=== PATIENT | male | born 1945 ===

== ENCOUNTER 2016-08-23 08:51 | Emergency (ER) | payer MEDICARE, OTHER ==
[2016-08-23 09:07] VITALS: BMI 38.2
[2016-08-23] MEDS ORDERED: Oxycodone/Acetaminophen 5/325 mg Tab PO STA (09:23)
--- NOTE | 2016-08-23 10:53 | CT ---
PROCEDURE: CT HEAD WITHOUT CONTRAST. HISTORY: head injury COMPARISON: 06/03/2012 TECHNIQUE: Axial computed tomography images were obtained through the head/brain without intravenous contrast. Radiation dose: Total exam DLP = 822.62 mGy-cm. This CT exam was performed using one or more of the following dose reduction techniques: Automated exposure control, adjustment of the mA and/or kV according to patient size, and/or use of iterative reconstruction technique. FINDINGS: HEMORRHAGE: No intracranial hemorrhage. BRAIN: No mass effect or edema. Mild diffuse cerebral atrophy consistent with age. Minimal chronic periventricular white matter ischemic change. VENTRICLES: Unremarkable. No hydrocephalus. CALVARIUM: Unremarkable. PARANASAL SINUSES: Chronic pansinusitis. Retention cysts/ polyps in the maxillary sinuses. MASTOID AIR CELLS: Unremarkable as visualized. No inflammatory changes. OTHER FINDINGS: None. IMPRESSION: No intracranial hemorrhage. Mild age-appropriate atrophy and minimal chronic white matter ischemic change. Chronic pansinusitis.
--- NOTE | 2016-08-23 10:55 | CT ---
PROCEDURE: CT Cervical Spine without contrast HISTORY: Trauma COMPARISON: None available. TECHNIQUE: Axial computed tomography images were obtained of the cervical spine without the use of intravenous contrast. Coronal and sagittal reformatted images were created and reviewed. Radiation dose: Total exam DLP = 714.76 mGy-cm. This CT exam was performed using one or more of the following dose reduction techniques: Automated exposure control, adjustment of the mA and/or kV according to patient size, and/or use of iterative reconstruction technique. FINDINGS: VERTEBRAE: No fracture. Normal alignment. No destructive bony lesion. DISCS/SPINAL CANAL/NEURAL FORAMINA: No significant central canal or neural foraminal stenosis. Discs heights are grossly preserved. PARASPINAL SOFT TISSUES: Unremarkable. OTHER FINDINGS: None. IMPRESSION: No evidence of fracture or dislocation.
--- NOTE | 2016-08-23 11:00 | ED PDOC ---
Arrival/HPI <Kartik Cantu - Last Filed: 08/23/16 10:59> - General Historian: Patient <Keena Schmidt - Last Filed: 08/23/16 12:44> - General Chief Complaint: Trauma Time Seen by Provider: 08/23/16 09:15 - History of Present Illness Narrative History of Present Illness (Text): 08/23/16 12:30 70yo male with history of hypertension in ED with complaint of back pain, neck, left knee and great toe pain s/p trauma this morning. States the stairs he was standing on collapsed and he fell down 3steps on his back. States he felt dizzy s/p, but denies LOC. Denies focal weakness, urinary/fecal incontinence, headache , nausea, vomiting, any other complaint. (Keena Schmidt) Past Medical History - Tetanus Immunization Tetanus Immunization: Unknown - Cardiac Hx Cardiac Disorders: Yes Hx Hypertension: Yes - Pulmonary Hx Respiratory Disorders: Yes Hx Asthma: Yes - Neurological Hx Neurological Disorder: No - HEENT Hx HEENT Disorder: No Hx Blind: No - Renal Hx Renal Disorder: No - Endocrine/Metabolic Hx Endocrine Disorders: No - Hematological/Oncological Hx Blood Disorders: No - Integumentary Hx Dermatological Disorder: No - Musculoskeletal/Rheumatological Hx Musculoskeletal Disorders: No - Gastrointestinal Hx Gastrointestinal Disorders: No - Genitourinary/Gynecological Hx Genitourinary Disorders: No - Psychiatric Hx Psychophysiologic Disorder: No Hx Depression: No Hx Emotional Abuse: No Hx Physical Abuse: No Hx Substance Use: No - Past Surgical History Past Surgical History: No Previous - Surgical History Hx Musculoskeletal Surgery: Yes (right knee) - Suicidal Assessment Feels Threatened In Home Enviroment: No <Kartik Cantu - Last Filed: 08/23/16 10:59> - Provider Review Nursing Documentation Reviewed: Yes <Keena Schmidt - Last Filed: 08/23/16 12:44> Family/Social History Smoking Status: Never Smoked Hx Alcohol Use: No Hx Substance Use: No Hx Substance Use Treatment: No <Kartik Cantu - Last Filed: 08/23/16 10:59> - Physician Review Nursing Documentation Reviewed: Yes Family/Social History: Unknown Family HX <Keena Schmidt A - Last Filed: 08/23/16 12:44> Allergies/Home Meds <Kartik Cantu - Last Filed: 08/23/16 10:59> <Keena Schmidt A - Last Filed: 08/23/16 12:44> Allergies/Adverse Reactions: Allergies No Known Allergies Allergy (Verified 08/23/16 09:07) Home Medications: Home Meds Medication Instructions Recorded Confirmed Albuterol/Ipratropium [Duoneb 3 3 ml IH 06/03/12 09/14/13 mg/0.5 mg (3 ml) UD] Losartan/Hydrochlorothiazide 1 tab PO DAILY 06/03/12 09/14/13 [Hyzaar 100-12.5 Tablet] Budesonide/Formoterol Fumarate 1 aer 09/14/13 09/14/13 [Symbicort 80-4.5 Mcg Inhaler] Mometasone/Formoterol [Dulera 200 1 marylou 09/14/13 09/14/13 Mcg/5 Mcg Inhaler] Review of Systems - Physician Review All systems were reviewed & negative as marked: Yes - Review of Systems Constitutional: Normal Eyes: Normal ENT: Normal Respiratory: Normal Cardiovascular: Normal Gastrointestinal: Normal Genitourinary Male: Normal Musculoskeletal: Arthralgias (LEft knee/great toe), Back Pain, Neck Pain Skin: Normal Neurological: Normal Endocrine: Normal Hemo/Lymphatic: Normal Psychiatric: Normal <Keena Schmidt A - Last Filed: 08/23/16 12:44> Physical Exam Vital Signs Reviewed: Yes Temperature: Afebrile Blood Pressure: Normal Pulse: Regular Respiratory Rate: Normal Appearance: Positive for: Well-Appearing, Non-Toxic, Comfortable Pain Distress: None Mental Status: Positive for: Alert and Oriented X 3 - Systems Exam Head: Present: Atraumatic, Normocephalic Pupils: Present: PERRL Extroacular Muscles: Present: EOMI Conjunctiva: Present: Normal Mouth: Present: Moist Mucous Membranes Neck: Present: Normal Range of Motion. No: MIDLINE TENDERNESS, Paraspinal Tenderness Respiratory/Chest: Present: Clear to Auscultation, Good Air Exchange. No: Respiratory Distress, Accessory Muscle Use Cardiovascular: Present: Regular Rate and Rhythm, Normal S1, S2. No: Murmurs Abdomen: Present: Normal Bowel Sounds. No: Tenderness, Distention, Peritoneal Signs Back: Present: Midline Tenderness, Paraspinal Tenderness (Diffuse back pain). No: Pain with Leg Raise Upper Extremity: Present: Normal Inspection. No: Cyanosis, Edema Lower Extremity: Present: NORMAL PULSES, Tenderness (Left knee and left great toe), Neurovascularly Intact, Capillary Refill < 2 s. No: Edema, Cyanosis, Normal ROM (Limited on flexion of left knee secondary to pain), Swelling, Erythema, Deformity, Temperature Abnormalties Neurological: Present: GCS=15, CN II-XII Intact, Speech Normal Skin: Present: Warm, Dry, Normal Color. No: Rashes Psychiatric: Present: Alert, Oriented x 3, Normal Insight, Normal Concentration <Keena Schmidt A - Last Filed: 08/23/16 12:44> Vital Signs Temp Pulse Resp BP Pulse Ox 08/23/16 12:20 68 18 158/79 H 97 08/23/16 11:00 69 18 162/86 H 97 08/23/16 09:09 98.7 F 73 16 166/96 H 97 Medical Decision Making <Kartik Cantu - Last Filed: 08/23/16 10:59> <Keena Schmidt A - Last Filed: 08/23/16 12:44> ED Course and Treatment: 08/23/16 11:00 I was available for consultation during PA evaluation. The chart was reviewed by me, and I agree with disposition. The documented history was done by the physician oil well services dispatcher. The documented physical exam was done by the physician oil well services dispatcher. The documented procedures were done by the physician oil well services dispatcher. ( Kartik Cantu) - RAD Interpretation Radiology Orders: 08/23/16 09:21 CERVICAL SPINE W/O CONTRAST [CT] Stat HEAD W/O CONTRAST [CT] Stat 08/23/16 09:22 FOOT LEFT GREAT TOE ROUTINE [RAD] Stat LS SPINE WITH OBL > 18 YRS OLD [RAD] Stat 08/23/16 11:09 KNEE LEFT 2 VIEWS (AP & LAT) [RAD] Stat - Medication Orders Current Medication Orders: Discontinued Medications Oxycodone/Acetaminophen (Percocet 5/325 Mg Tab) 1 tab PO STAT STA Stop: 08/23/16 09:24 Last Admin: 08/23/16 09:46 Dose: 1 TAB Disposition/Present on Arrival - Present on Arrival History of DVT/PE: No History of Uncontrolled Diabetes: No Urinary Catheter: No History of Decub. Ulcer: No History Surgical Site Infection Following: None <Kartik Cantu - Last Filed: 08/23/16 10:59> - Present on Arrival Any Indicators Present on Arrival: Yes History of DVT/PE: No History of Uncontrolled Diabetes: No Urinary Catheter: No History of Decub. Ulcer: No History Surgical Site Infection Following: None - Disposition Have Diagnosis and Disposition been Completed?: Yes Disposition Time: 12:35 Patient Plan: Discharge <Keena Schmidt - Last Filed: 08/23/16 12:44> - Disposition Diagnosis: Back pain, Knee pain, Toe pain, Abrasion Disposition: HOME/ ROUTINE Condition: STABLE Discharge Instructions (ExitCare): Musculoskeletal Pain (ED) Additional Instructions: Follow up with your doctor/Orthopedist Return to ED For any new or worsening symptoms Prescriptions: Cyclobenzaprine [Flexeril] 5 mg PO BID #10 tab traMADol [Ultram] 50 mg PO TID #10 tab Referrals: Neil Pablo DO [Staff Provider] - Follow up with primary
--- NOTE | 2016-08-23 11:26 | RAD ---
PROCEDURE: Left Knee Radiographs. HISTORY: Pain. COMPARISON: None. FINDINGS: BONES: Normal. No fracture. JOINTS: There is mild joint space narrowing in the lateral compartment and the patellofemoral joint JOINT EFFUSION: None. OTHER FINDINGS: None. IMPRESSION: There is mild joint space narrowing in the lateral compartment and the patellofemoral joint
--- NOTE | 2016-08-23 11:29 | RAD ---
PROCEDURE: Left Foot Radiographs. HISTORY: great toe pain s/p trauma COMPARISON: None. FINDINGS: BONES: Normal. No fracture. JOINTS: Mild degenerative changes are seen in the 1st MTP joint. There is mild hallux valgus angulation. SOFT TISSUES: Normal. OTHER FINDINGS: None. IMPRESSION: No acute fracture
[2016-08-23 11:44] VITALS: RESP 18
--- NOTE | 2016-08-23 11:52 | RAD ---
PROCEDURE: Radiographs of the Lumbar Spine. HISTORY: back pain s/p trauma COMPARISON: No prior. FINDINGS: BONES: No fracture. Normal alignment. Mild dextroscoliotic curvature. DISC SPACES: Unremarkable. OTHER FINDINGS: None. IMPRESSION: Mild dextroscoliosis. Otherwise unremarkable examination.
[2016-08-23 12:59] VITALS: BP 153/91; PULSE 65; TEMP 98.1; O2SAT 98
[2016-08-23] MEDS ORDERED: Dextrose 50% SYRINGE Inj (50 ml) ONE (20:34)
== END 2016-08-23 13:05 | disposition home or self-care (01) ==
LOC: ED 08:51
DX: M54.9 Dorsalgia, unspecified (principal); M25.562 Pain in left knee; M79.675 Pain in left toe(s)

== ENCOUNTER 2016-09-01 13:13 | Emergency (ER) | payer MEDICARE ==
[2016-09-01 13:13] VITALS: BMI 38.2
[2016-09-01 13:20] VITALS: PULSE 64; TEMP 98.2
[2016-09-01 13:26] VITALS: BP 168/54
--- NOTE | 2016-09-01 13:30 | ED PDOC ---
Arrival/HPI - General Time Seen by Provider: 09/01/16 13:20 Historian: Patient - History of Present Illness Narrative History of Present Illness (Text): 09/01/16 13:26 Justin Pinzon is a 70 year old male, with a history of asthma, presents to the emergency department complaining of several week duration of shortness of breath. Patient was evaluated by pulmonoloist, , today and was advised to present to emergency department for further evaluation. States that he used inhaler treatments at home today morning for minimal relief. States that shortness of breath is worsened with exertion. Denies chest pain. Denies fever, chills, headache, dizziness, nausea, vomiting, diarrhea, or any other complaints at this time. Time/Duration: > week (several weeks ) Symptom Onset: Gradual Symptom Course: Worsening Severity Level: Mild Activities at Onset: Light Past Medical History - Provider Review Nursing Documentation Reviewed: Yes - Tetanus Immunization Tetanus Immunization: Unknown - Cardiac Hx Cardiac Disorders: Yes Hx Hypertension: Yes - Pulmonary Hx Respiratory Disorders: Yes Hx Asthma: Yes - Neurological Hx Neurological Disorder: No - HEENT Hx HEENT Disorder: No Hx Blind: No - Renal Hx Renal Disorder: No - Endocrine/Metabolic Hx Endocrine Disorders: No - Hematological/Oncological Hx Blood Disorders: No - Integumentary Hx Dermatological Disorder: No - Musculoskeletal/Rheumatological Hx Musculoskeletal Disorders: No - Gastrointestinal Hx Gastrointestinal Disorders: No - Genitourinary/Gynecological Hx Genitourinary Disorders: No - Psychiatric Hx Psychophysiologic Disorder: No Hx Depression: No Hx Emotional Abuse: No Hx Physical Abuse: No Hx Substance Use: No - Past Surgical History Past Surgical History: No Previous - Surgical History Hx Musculoskeletal Surgery: Yes (right knee) - Suicidal Assessment Feels Threatened In Home Enviroment: No Family/Social History - Physician Review Nursing Documentation Reviewed: Yes Family/Social History: No Known Family HX Smoking Status: Never Smoked Hx Alcohol Use: No Hx Substance Use: No Hx Substance Use Treatment: No Allergies/Home Meds Allergies/Adverse Reactions: Allergies No Known Allergies Allergy (Verified 09/01/16 13:26) Home Medications: Home Meds Medication Instructions Recorded Confirmed Albuterol/Ipratropium [Duoneb 3 3 ml IH 06/03/12 09/14/13 mg/0.5 mg (3 ml) UD] Losartan/Hydrochlorothiazide 1 tab PO DAILY 06/03/12 09/14/13 [Hyzaar 100-12.5 Tablet] Budesonide/Formoterol Fumarate 1 aer 09/14/13 09/14/13 [Symbicort 80-4.5 Mcg Inhaler] Mometasone/Formoterol [Dulera 200 1 marylou 09/14/13 09/14/13 Mcg/5 Mcg Inhaler] Review of Systems - Review of Systems Constitutional: absent: Fatigue, Fevers Respiratory: SOB, Wheezing. absent: Cough, Sputum Cardiovascular: AYERS. absent: Chest Pain, Palpitations, Edema, Calf Pain Gastrointestinal: absent: Abdominal Pain, Diarrhea, Nausea, Vomiting Genitourinary Male: absent: Dysuria, Frequency Musculoskeletal: absent: Back Pain Skin: absent: Rash Neurological: absent: Headache, Dizziness Physical Exam - Physical Exam Narrative Physical Exam (Text): 09/01/16 13:31 Head: Atraumatic. Normocephalic. Eyes: PERRL. EOMI. Conjunctivae are not pale. ENT: Mucous membranes are moist and intact. Oropharynx is clear and symmetric. No pharyngeal erythema or exudates. No drooling or stridor. Neck: Supple. Full ROM. No JVD. No lymphadenopathy. Cardiovascular: Regular rate. Regular rhythm. No murmurs, rubs, or gallops. Distal pulses are 2+ and symmetric. Pulmonary/Chest: No evidence of respiratory distress. bilateral expiratory wheeze with prolonged expiratory phase. No rales or rhonchi. Abdominal: Soft and non-distended. There is no tenderness. No rebound, guarding, or rigidity. No organomegaly. Good bowel sounds. Back: No CVA tenderness. Extremities: No edema. No cyanosis. No clubbing. Full range of motion in all extremities. No calf tenderness. Skin: Skin is warm and dry. No petechiae. No purpura. Neurological: Alert, awake, and oriented to person, place, time, and situation. Normal speech. Motor and sensory intact. Psychiatric: Good eye contact. Normal interaction, affect, and behavior. Vital Signs Reviewed: Yes Vital Signs Temp Pulse Resp BP Pulse Ox 09/01/16 13:35 18 99 09/01/16 13:19 98.2 F 64 20 168/54 H 98 Temperature: Afebrile Blood Pressure: Normal Pulse: Regular Appearance: Positive for: Non-Toxic, Comfortable Pain Distress: Mild Mental Status: Positive for: Alert and Oriented X 3 Medical Decision Making ED Course and Treatment: 09/01/16 13:33 Impression: A 70 year old male who presents to the emergency department complaining of several week duration of worsening shortness of breath. Differential Diagnosis include but are not limited to: Plan: -- EKG -- Labs, cardiac enzymes -- Chest X-ray -- Duoneb -- Solumedrol -- Blood culture -- Urine culture -- Urinalysis -- Reassess and disposition Progress Notes: Patient with diffuse wheezing noted on exam. Patient administered multiple nebulizers and iv steroids, on reassessment wheezing persists. He denies chest pain, he states he feels better. On re-exam however he is persistently wheezing despite multiple nebulizers. Abnormal chest xray reviewed with patient, risk of lung disease, cardiac disease reviewed with patient. He states he wishes to go home because he feels better and will follow-up with his physician. Risks discussed with patient in laymen's terms. He will sign out against medical advice. 09/01/16 15:25 Leaving Against Medical Advice (AMA): The patient is choosing to leave against medical advice. I have personally explained to the patient that choosing to do so may result in permanent bodily harm or . I have discussed at great length that without further evaluation and monitoring there may be unforeseen circumstances and/or deterioration causing permanent bodily harm or as a result of their choice. The patient is alert, oriented, and shows the mental capacity to make clear decisions regarding the patients health care at this time. The patient continues to wish to leave against medical advice. The patient has been advised that they should return to the emergency room immediately if they change their mind at any time, or if their condition begins to change or worsen in any way. - Lab Interpretations Microbiology Results: Microbiology Results 09/01/16 13:40 Blood Blood Culture - Preliminary NO GROWTH AFTER 4 DAYS 09/01/16 13:25 Blood Blood Culture - Preliminary NO GROWTH AFTER 4 DAYS Lab Results: 09/01/16 13:25 09/01/16 13:25 Lab Results 09/01/16 13:32: POC Glucose (mg/dL) 110 09/01/16 13:25: PT 11.2, INR 1.04, APTT 27.5 09/01/16 13:25: WBC 5.8 D, RBC 4.77, Hgb 14.8, Hct 41.4 L, MCV 86.8, MCH 31.0, MCHC 35.7, RDW 12.6, Plt Count 187, MPV 9.2, Gran % 63.0, Lymph % (Auto) 22.3, Dickey % (Auto) 6.5 H, Eos % (Auto) 7.9 H, Baso % (Auto) 0.3, Gran # 3.68, Lymph # 1.3, Dickey # 0.4, Eos # 0.5, Baso # 0.02 09/01/16 13:25: Sodium 138, Potassium 3.9, Chloride 99, Carbon Dioxide 29, Anion Gap 14, BUN 18, Creatinine 0.8, Est GFR ( Amer) > 60, Est GFR (Non- Af Amer) > 60, Random Glucose 110, Calcium 9.2, Total Bilirubin 0.8, AST 31, ALT 52, Alkaline Phosphatase 135 H, Lactate Dehydrogenase 568, Total Creatine Kinase 142, Troponin I < 0.01, NT-Pro-B Natriuret Pep 71.7, Total Protein 7.8, Albumin 4.2, Globulin 3.6, Albumin/Globulin Ratio 1.2 - RAD Interpretation Radiology Orders: 09/01/16 13:27 CHEST PORTABLE [RAD] Stat - Medication Orders Current Medication Orders: Discontinued Medications Albuterol/Ipratropium (Duoneb 3 Mg/0.5 Mg (3 Ml) Ud) 3 ml IH Q15M [place] Stop: 09/01/16 14:01 Last Admin: 09/01/16 14:37 Dose: 3 ml Methylprednisolone (Solu-Medrol) 125 mg IVP STAT STA Stop: 09/01/16 13:28 Last Admin: 09/01/16 13:42 Dose: 125 mg - Sudhaibe Statement The provider has reviewed the documentation as recorded by the Gillian Mcleod Provider Attestation: All medical record entries made by the Gillian were at my direction and personally dictated by me. I have reviewed the chart and agree that the record accurately reflects my personal performance of the history, physical exam, medical decision making, and the department course for this patient. I have also personally directed, reviewed, and agree with the discharge instructions and disposition. Disposition/Present on Arrival - Present on Arrival Any Indicators Present on Arrival: No History of DVT/PE: No History of Uncontrolled Diabetes: No Urinary Catheter: No History Surgical Site Infection Following: None - Disposition Have Diagnosis and Disposition been Completed?: Yes Diagnosis: Asthma exacerbation Disposition: AGAINST MEDICAL ADVICE Disposition Time: 15:45 Patient Plan: Discharge Condition: GOOD Referrals: Bob Phillips MD [Primary Care Provider] - Follow up with primary
[2016-09-01 13:37] VITALS: RESP 18; O2SAT 99
[2016-09-01 13:42] LABS: ADD MANUAL DIFF? NO
[2016-09-01] MEDS: Albuterol-Ipratrop 3 mg / 0.5 (3 ml) UD IH SCH ×3 (13:42→14:37)
[2016-09-01 13:49] LABS: BASO # 0.02 K/mm3 (0.0-2.0); BASO % 0.3 % (0.0-3.0); EOS # 0.5 (0.0-0.7); EOS % 7.9 % (1.5-5.0); GRAN # 3.68 (1.4-6.5); HEMATOCRIT 41.4 % (42.0-52.0); LYMPH # 1.3 (1.2-3.4); LYMPH % 22.3 % (22.0-35.0); MEAN CELL VOLUME 86.8 fL (80.0-105.0); MEAN CORPUSCULAR HGB CONC 35.7 g/dl (31.0-37.0); MEAN PLATELET VOLUME 9.2 fl (7.0-11.0); MONO # 0.4 (0.1-0.6); MONO % 6.5 % (1.0-6.0); PLATELET COUNT 187 10^3/uL (120.0-450.0); RED CELL DISTRIBUTION WIDTH 12.6 % (11.5-14.5); WHITE BLOOD COUNT 5.8 10^3/ul (4.5-11.0)
[2016-09-01 13:56] LABS: INR 1.04 (0.93-1.08); PARTIAL THROMBOPLASTIN TIME 27.5 Seconds (23.7-30.8)
[2016-09-01 13:58] LABS: ALB/GLOB RATIO 1.2 (1.1-1.8); ALKALINE PHOSPHATASE 135 U/L (38-133); ALT/SGPT 52 U/L (7-56); AST/SGOT 31 U/L (15-59); BILIRUBIN,TOTAL 0.8 mg/dL (0.2-1.3); BLOOD UREA NITROGEN 18 mg/dL (7-21); CALCIUM 9.2 mg/dL (8.4-10.5); CARBON DIOXIDE 29 mmol/L (21-33); CHLORIDE 99 mmol/L (98-107); GFR AFRICAN-AMERICAN > 60; GLUCOSE,RANDOM 110 mg/dL (70-110); POTASSIUM 3.9 mmol/L (3.6-5.0); SODIUM 138 mmol/L (132-148); TOTAL PROTEIN 7.8 g/dL (5.8-8.3)
[2016-09-01 14:11] LABS: TROPONIN I < 0.01 ng/mL
--- NOTE | 2016-09-01 14:56 | RAD ---
HISTORY: sob COMPARISON: 05/24/2016 FINDINGS: LUNGS: No active pulmonary disease. PLEURA: No significant pleural effusion identified, no pneumothorax apparent. CARDIOVASCULAR: Cardiomegaly slightly more conspicuous -possibly due to interval change in technique Minimal pulmonary venous congestion possible OSSEOUS STRUCTURES: Thoracic spondylosis VISUALIZED UPPER ABDOMEN: Normal. OTHER FINDINGS: None. IMPRESSION: Cardiomegaly minimal pulmonary venous congestion possible. No pleural effusion or consolidation
--- NOTE | 2016-09-01 18:41 | CARD ---
APPROVED REPORT EKG Measurement Heart [id number] <Conclusion> Poor data quality, interpretation may be adversely affected Sinus bradycardia Otherwise normal ECG
== END 2016-09-01 15:36 | disposition left against medical advice (07) ==
LOC: ED 13:13
DX: J45.901 Unspecified asthma with (acute) exacerbation (principal)
CPT/HCPCS: 71010; 80053; 82550; 82948; 83615; 83880; 84484; 85025; 85610; 85730; 87040; 93005; 96374; 99284; J2930

== ENCOUNTER 2017-09-25 11:18 | Emergency (ER) | payer MEDICARE, OTHER ==
[2017-09-25 11:20] VITALS: TEMP 98.1; O2SAT 98; BMI 34.9
[2017-09-25] MEDS: Albuterol-Ipratrop 3 mg / 0.5 (3 ml) UD IH SCH ×3 (11:20→11:52)
--- NOTE | 2017-09-25 11:32 | ED PDOC ---
Arrival/HPI - General Chief Complaint: Shortness Of Breath Time Seen by Provider: 09/25/17 11:22 Historian: Patient - History of Present Illness Narrative History of Present Illness (Text): 09/25/17 11:32 This 71 yo male with pmh asthma, COPD, HTN, hyperlipidemia, CAD ( 2 coronary stents in 2014) presents to this ED c/o intermittent SOB x 2 weeks. Patient stated last episode started 7 hours ago with cough, mid-sternal CP. Patient feels mild dizzy when he cough. Patient denies fever, recent travel, sick contact, neck stiffness, palpitation, n/v, abdominal pain, dysarthria, dysphagia , elizabeth, or diplopia. Patient stated he had an echocardiorgram, EKG, and nuclear stress test x 7 months ago, done by Dr. Tucker, [employer]. Patient saw Dr. Tucker again, 2 months ago for medical clearance (cardiology) for surgery. He said manager helpdesk stated patient was fit for surgery. Dr. Huang, Transitions Manager Rn Dr. Villareal, PMD Dr. Tucker, [employer] Time/Duration: Other (see hpi) Context: Home Past Medical History - Provider Review Nursing Documentation Reviewed: Yes - Infectious Disease Hx of Infectious Diseases: None - Tetanus Immunization Tetanus Immunization: Unknown - Cardiac Hx Cardiac Disorders: Yes Hx Hypertension: Yes - Pulmonary Hx Respiratory Disorders: Yes Hx Asthma: Yes - Neurological Hx Neurological Disorder: No - HEENT Hx HEENT Disorder: No Hx Blind: No - Renal Hx Renal Disorder: No - Endocrine/Metabolic Hx Endocrine Disorders: No - Hematological/Oncological Hx Blood Disorders: No - Integumentary Hx Dermatological Disorder: No - Musculoskeletal/Rheumatological Hx Musculoskeletal Disorders: No - Gastrointestinal Hx Gastrointestinal Disorders: No - Genitourinary/Gynecological Hx Genitourinary Disorders: No - Psychiatric Hx Psychophysiologic Disorder: No Hx Depression: No Hx Emotional Abuse: No Hx Physical Abuse: No Hx Substance Use: No - Past Surgical History Past Surgical History: No Previous - Surgical History Hx Musculoskeletal Surgery: Yes (right knee) - Anesthesia Hx Anesthesia: Yes Hx Anesthesia Reactions: No Hx Malignant Hyperthermia: No - Suicidal Assessment Feels Threatened In Home Enviroment: No Family/Social History - Physician Review Nursing Documentation Reviewed: Yes Family/Social History: Other (noncontributory) Smoking Status: Never Smoked Hx Alcohol Use: No Hx Substance Use: No Hx Substance Use Treatment: No Allergies/Home Meds Allergies/Adverse Reactions: Allergies No Known Allergies Allergy (Verified 09/01/16 13:26) Home Medications: Home Meds Medication Instructions Recorded Confirmed Albuterol Sulfate [Proair Hfa] 1 puff IH QID 09/25/17 09/25/17 Atorvastatin [Lipitor] 1 tab PO HS 09/25/17 09/25/17 Dexlansoprazole [Dexilant] 1 tab PO DAILY 09/25/17 09/25/17 Mometasone/Formoterol [Dulera 200 1 puff IH DAILY 09/25/17 09/25/17 Mcg/5 Mcg Inhaler] Tiotropium [Spiriva] 1 cap IH DAILY 09/25/17 09/25/17 Valsartan/Hydrochlorothiazide 1 tab PO DAILY 09/25/17 09/25/17 [Valsartan-Hctz 320-25 mg Tab] amLODIPine [Norvasc] 1 tab PO DAILY 09/25/17 09/25/17 Review of Systems - Review of Systems Constitutional: Normal. absent: Fatigue, Weight Change, Fevers Eyes: Normal ENT: Normal Respiratory: SOB, Cough, Sputum, Wheezing Cardiovascular: Chest Pain. absent: Palpitations, Edema, Calf Pain, AYERS, Orthopnea, Syncope Gastrointestinal: Normal. absent: Abdominal Pain, Nausea, Vomiting Genitourinary Male: Normal. absent: Dysuria, Frequency, Hematuria Musculoskeletal: Normal. absent: Back Pain, Neck Pain, Myalgias Skin: Normal. absent: Rash Neurological: Normal. absent: Headache, Dizziness, Focal Weakness, Gait Changes , Speech Changes, Facial Droop, Disequilibrium, Seizure Endocrine: Normal Hemo/Lymphatic: Normal Psychiatric: Normal Physical Exam Vital Signs Temp Pulse Resp BP Pulse Ox 09/25/17 16:13 69 18 128/68 98 09/25/17 14:13 74 18 131/71 98 09/25/17 12:28 86 18 138/78 98 09/25/17 11:39 24 98 09/25/17 11:19 98.1 F 94 H 20 142/83 98 Temperature: Afebrile Blood Pressure: Normal Pulse: Regular Respiratory Rate: Normal Appearance: Positive for: Well-Appearing, Non-Toxic, Comfortable Pain Distress: None Mental Status: Positive for: Alert and Oriented X 3 - Systems Exam Head: Present: Atraumatic, Normocephalic Pupils: Present: PERRL Extroacular Muscles: Present: EOMI Conjunctiva: Present: Normal Mouth: Present: Moist Mucous Membranes Neck: Present: Normal Range of Motion Respiratory/Chest: Present: Wheezes, Decreased Breath Sounds. No: Respiratory Distress, Accessory Muscle Use, Rales, Retracting, Rhonchi, Tachypneic, Tender to Palpation Cardiovascular: Present: Regular Rate and Rhythm, Normal S1, S2. No: Murmurs Abdomen: No: Tenderness, Distention, Peritoneal Signs, Rebound, Guarding Back: Present: Normal Inspection. No: CVA Tenderness Upper Extremity: Present: Normal Inspection, Normal ROM. No: Cyanosis, Edema Lower Extremity: Present: Normal Inspection, Normal ROM. No: Edema Neurological: Present: GCS=15, CN II-XII Intact, Speech Normal, Motor Func Grossly Intact, Normal Sensory Function, Normal Cerebellar Funct, Gait Normal, Memory Normal Skin: Present: Warm, Dry, Normal Color. No: Rashes Psychiatric: Present: Alert, Oriented x 3, Normal Insight, Normal Concentration Medical Decision Making ED Course and Treatment: 09/25/17 13:46 Patient stated he is feeling well, and his symptoms had significantly improved. I told patient due to his risk factors, I will order a repeat Troponin and EKG again in 5 hours. Patient agreed with plan. 09/25/17 18:09 Repeat EKG: NSR @ [address] changes . No changes from previous EKG 09/25/17 18:24 Re-evaluation. Patient feels better. Discussed results and plan with patient who expresses understanding. All questions answered and there is agreement with the plan to discharge home with instructions. Patient stable for discharge. Return if symptoms persist or worsen. Lungs CTA b/l, no CP, No SOB, no wheezing, rales, or rhonchi. Second Troponin was negative. Patient is requesting Prednisone prescription, and Albuterol to control his asthma symptoms. He said he understands Prednisone and Solumedro are associated with increased risk for DM, and AVN, osteoporosis, glaucoma. He knows the risk, bu he insisted to get prescription for Prednisone. He said he will contact PMD in 2 days. Patient was recommended to return to emergency if symptoms worsen. Patient understood that he can stop taking Prednisone at anytime if symptoms resolves. Re-evaluation Time: 18:28 Reassessment Condition: Re-examined, Improved - Lab Interpretations Lab Results: 09/25/17 11:30 09/25/17 11:30 Lab Results 09/25/17 17:15: Troponin I < 0.01 09/25/17 11:45: pCO2 29 L, pO2 191.0 H, HCO3 24.8, ABG pH 7.54 H, ABG Total CO2 25.7, ABG O2 Saturation 99.2 H, ABG Base Excess 3.1 H, ABG Potassium 2.9 L, Glucose 270 H, Lactate 1.7, FiO2 40.0, Sodium 139.0, Chloride 108.0 H, Arterial Blood Potassium 2.9 L 09/25/17 11:30: Sodium 141, Potassium 4.2, Chloride 98, Carbon Dioxide 30, Anion Gap 17, BUN 18, Creatinine 0.8, Est GFR ( Amer) > 60, Est GFR (Non- Af Amer) > 60, Random Glucose 270 H, Calcium 9.4, Magnesium 1.7, Total Bilirubin 0.7, AST 31, ALT 43, Alkaline Phosphatase 155 H, Lactate Dehydrogenase 623, Total Creatine Kinase 106, Troponin I < 0.01, Total Protein 6.9, Albumin 4.0, Globulin 2.9, Albumin/Globulin Ratio 1.4 09/25/17 11:30: WBC 5.5, RBC 4.42, Hgb 13.8 L, Hct 37.8 L, MCV 85.5, MCH 31.2, MCHC 36.5, RDW 12.8, Plt Count 197, MPV 9.5, Gran % 60.5, Lymph % (Auto) 24.8, Fannin % (Auto) 7.6 H, Eos % (Auto) 6.7 H, Baso % (Auto) 0.4, Gran # 3.34, Lymph # (Auto) 1.4, Fannin # (Auto) 0.4, Eos # (Auto) 0.4, Baso # (Auto) 0.02 I have reviewed the lab results: Yes Interpretation: No clinic. lab abnormalty - RAD Interpretation Narrative RAD Interpretations (Text): 09/25/17 13:15 HISTORY: SOB COMPARISON: Comparison chest 08/29/2017 FINDINGS: LUNGS: Poor inspiration with low lung volumes, crowded bronchovascular markings and mild bibasilar atelectasis PLEURA: No significant pleural effusion identified, no pneumothorax apparent. CARDIOVASCULAR: Cardiomegaly. OSSEOUS STRUCTURES: No significant abnormalities. VISUALIZED UPPER ABDOMEN: Normal. OTHER FINDINGS: None. IMPRESSION: Poor inspiration with low lung volumes, crowded bronchovascular markings and mild bibasilar atelectasis Cardiomegaly. Radiology Orders: 09/25/17 11:33 CHEST PORTABLE [RAD] Stat - EKG Interpretation Interpreted by ED Physician: Yes (NSR @ [address] changes) Type: 12 lead EKG Comparison: Similar to previous EKG - Medication Orders Current Medication Orders: Discontinued Medications Albuterol/Ipratropium (Duoneb 3 Mg/0.5 Mg (3 Ml) Ud) 3 ml IH Q15M [place] Stop: 09/25/17 12:16 Last Admin: 09/25/17 11:52 Dose: 3 ml Methylprednisolone (Solu-Medrol) 125 mg IVP STAT STA Stop: 09/25/17 11:36 Last Admin: 09/25/17 11:48 Dose: 125 mg IVP Administration Document 09/25/17 11:48 GMD (Rec: 09/25/17 11:48 GMD [id number]) Charges for Administration # of IVP Administrations 1 Disposition/Present on Arrival - Present on Arrival Any Indicators Present on Arrival: No History of DVT/PE: No History of Uncontrolled Diabetes: No Urinary Catheter: No History of Decub. Ulcer: No History Surgical Site Infection Following: None - Disposition Have Diagnosis and Disposition been Completed?: Yes Diagnosis: Asthma exacerbation, Chest pain, non-cardiac, Bronchitis Disposition: HOME/ ROUTINE Disposition Time: 18:32 Patient Plan: Discharge Patient Problems: Current Active Problems Problem Status Onset Asthma exacerbation Acute Chest pain, non-cardiac Acute Condition: IMPROVED Discharge Instructions (ExitCare): Acute Bronchitis, Adult (DC), Asthma, Adult (DC) Additional Instructions: Call private doctor for follow up visit in 2 days. Take medication as instructed with food. Call manager helpdesk for revaluation. Return to emergency if symptoms worsen. I have prescribed Prednisone at your request. Remember what we talked in the ER. Prednisone is associated with diabetes, rare hip bone necrosis, glaucoma, osteoporosis, high blood pressure. You could stop Prednisone at anytime. If you are concern about the risk, please see your private doctor in 2 days. Prescriptions: Albuterol HFA [Ventolin HFA 90 mcg/actuation (8 g)] 2 puff IH [id number] PRN #120 puff PRN Reason: Wheezing Doxycycline Hyclate 100 mg PO BID #14 capsule predniSONE [predniSONE Tab] 40 mg PO DAILY #6 tab Referrals: Naveed Villareal [Family Provider] - Follow up with primary Forms: [facility] (Bengali)
[2017-09-25 11:49] LABS: ARTERIAL BLOOD GAS HCO3 24.8 mmol/L (21-28); ARTERIAL BLOOD GAS O2 SAT 99.2 % (95-98); ARTERIAL BLOOD GAS PCO2 29 mm/Hg (35-45); ARTERIAL BLOOD GAS PH 7.54 (7.35-7.45); ARTERIAL BLOOD GAS TCO2 25.7 mmol.L (22-28)
[2017-09-25 11:51] LABS: BASO # 0.02 K/mm3 (0.0-2.0); BASO % 0.4 % (0.0-3.0); EOS # 0.4 (0.0-0.7); EOS % 6.7 % (1.5-5.0); GRAN # 3.34 (1.4-6.5); GRAN % 60.5 % (50.0-68.0); HEMOGLOBIN 13.8 g/dL (14.0-18.0); LYMPH # 1.4 (1.2-3.4); LYMPH % 24.8 % (22.0-35.0); MEAN CELL VOLUME 85.5 fl (80.0-105.0); MEAN CORPUSCULAR HEMOGLOBIN 31.2 pg (25.0-35.0); MEAN CORPUSCULAR HGB CONC 36.5 g/dl (31.0-37.0); MEAN PLATELET VOLUME 9.5 fl (7.0-11.0); MONO # 0.4 (0.1-0.6); MONO % 7.6 % (1.0-6.0); RBC 4.42 10^6/uL (3.5-6.1); RED CELL DISTRIBUTION WIDTH 12.8 % (11.5-14.5); WHITE BLOOD COUNT 5.5 10^3/ul (4.5-11.0)
[2017-09-25 12:05] LABS: ALB/GLOB RATIO 1.4 (1.1-1.8); ALT/SGPT 43 U/L (7-56); AST/SGOT 31 U/L (17-59); BLOOD UREA NITROGEN 18 mg/dL (7-21); CALCIUM 9.4 mg/dL (8.4-10.5); GFR AFRICAN-AMERICAN > 60; GFR NON-AFRICAN AMERICAN > 60
[2017-09-25 12:16] LABS: TROPONIN I < 0.01 ng/mL
--- NOTE | 2017-09-25 12:18 | RAD ---
HISTORY: SOB COMPARISON: Comparison chest 08/29/2017 FINDINGS: LUNGS: Poor inspiration with low lung volumes, crowded bronchovascular markings and mild bibasilar atelectasis PLEURA: No significant pleural effusion identified, no pneumothorax apparent. CARDIOVASCULAR: Cardiomegaly. OSSEOUS STRUCTURES: No significant abnormalities. VISUALIZED UPPER ABDOMEN: Normal. OTHER FINDINGS: None. IMPRESSION: Poor inspiration with low lung volumes, crowded bronchovascular markings and mild bibasilar atelectasis Cardiomegaly.
[2017-09-25 12:29] VITALS: RESP 18
[2017-09-25 18:33] VITALS: BP 126/64; PULSE 64
--- NOTE | 2017-09-26 07:55 | CARD ---
APPROVED REPORT EKG Measurement Heart [id number] [place] [id number] <Conclusion> Poor data quality, interpretation may be adversely affected Normal sinus rhythm Normal ECG
--- NOTE | 2017-09-26 09:44 | CARD ---
APPROVED REPORT EKG Measurement Heart [id number] <Conclusion> Normal sinus rhythm Prolonged QT Abnormal ECG
== END 2017-09-25 18:46 | disposition home or self-care (01) ==
LOC: ED 11:18
DX: J45.901 Unspecified asthma with (acute) exacerbation (principal); J40 Bronchitis, not specified as acute or chronic; R07.89 Other chest pain; E78.5 Hyperlipidemia, unspecified; I10 Essential (primary) hypertension; I25.10 Atherosclerotic heart disease of native coronary artery without angina pectoris
CPT/HCPCS: 36600; 71045; 80053; 82550; 82803; 83615; 83735; 84484; 85025; 93005; 96374; 99285; J2930

== ENCOUNTER 2018-02-12 10:55 | Emergency (ER) | payer MEDICARE ==
[2018-02-12 10:55] VITALS: BMI 34.9
[2018-02-12 11:06] VITALS: TEMP 97.7
[2018-02-12] MEDS ORDERED: Albuterol-Ipratrop 3 mg / 0.5 (3 ml) UD IH STA (11:13)
--- NOTE | 2018-02-12 11:30 | ED PDOC ---
Arrival/HPI - General Chief Complaint: Cough, Cold, Congestion Time Seen by Provider: 02/12/18 11:12 Historian: Patient - History of Present Illness Narrative History of Present Illness (Text): 72 y/o M w/ h/o asthma, COPD, CAD (2 stents placed in 2014), hypertension, hyperlipidemia presenting to the emergency department complaining of non productive cough and left-sided chest pain for the past 3 days. He admits to not possessing a nebulizer at home, however states he normally use a rescue inhaler at home twice daily. However patient has had no relief of the symptoms with using the pump. He also reports experiencing headaches that have been gradual in nature with as well. Patient denies any fever, chills, or any other complaints at this time. No PMD Time/Duration: < week (3 days) Symptom Course: Unchanged Severity Level: Moderate Context: Home Past Medical History - Provider Review Nursing Documentation Reviewed: Yes - Travel History Have you recently traveled outside [place] w/in the past 3 mons?: No - Infectious Disease Hx of Infectious Diseases: None - Tetanus Immunization Tetanus Immunization: Unknown - Cardiac Hx Cardiac Disorders: Yes Hx Hypertension: Yes - Pulmonary Hx Respiratory Disorders: Yes Hx Asthma: Yes - Neurological Hx Neurological Disorder: No - HEENT Hx HEENT Disorder: No Hx Blind: No - Renal Hx Renal Disorder: No - Endocrine/Metabolic Hx Endocrine Disorders: No - Hematological/Oncological Hx Blood Disorders: No - Integumentary Hx Dermatological Disorder: No - Musculoskeletal/Rheumatological Hx Musculoskeletal Disorders: No - Gastrointestinal Hx Gastrointestinal Disorders: No - Genitourinary/Gynecological Hx Genitourinary Disorders: No - Psychiatric Hx Psychophysiologic Disorder: No Hx Depression: No Hx Emotional Abuse: No Hx Physical Abuse: No Hx Substance Use: No - Past Surgical History Past Surgical History: No Previous - Surgical History Hx Musculoskeletal Surgery: Yes (right knee) - Anesthesia Hx Anesthesia: Yes Hx Anesthesia Reactions: No Hx Malignant Hyperthermia: No - Suicidal Assessment Feels Threatened In Home Enviroment: No Family/Social History - Physician Review Nursing Documentation Reviewed: Yes Family/Social History: No Known Family HX Smoking Status: Never Smoked Hx Alcohol Use: No Hx Substance Use: No Hx Substance Use Treatment: No Allergies/Home Meds Allergies/Adverse Reactions: Allergies No Known Allergies Allergy (Verified 02/12/18 11:05) Home Medications: Home Meds Medication Instructions Recorded Confirmed Atorvastatin [Lipitor] 40 mg PO HS 09/25/17 02/12/18 Dexlansoprazole [Dexilant] 60 mg pe PO DAILY 09/25/17 02/12/18 Mometasone/Formoterol [Dulera 200 1 puff IH DAILY 09/25/17 02/12/18 Mcg/5 Mcg Inhaler] Valsartan/Hydrochlorothiazide 1 tab PO DAILY 09/25/17 02/12/18 [Valsartan-Hctz 320-25 mg Tab] amLODIPine [Norvasc] 10 mg PO DAILY 09/25/17 02/12/18 Review of Systems - Physician Review All systems were reviewed & negative as marked: Yes - Review of Systems Constitutional: absent: Fevers, Night Sweats Respiratory: Cough Cardiovascular: Chest Pain (left-side) Physical Exam Vital Signs Reviewed: Yes Vital Signs Temp Pulse Resp BP Pulse Ox 02/12/18 11:03 97.7 F 66 18 130/80 99 Temperature: Afebrile Blood Pressure: Normal Pulse: Regular Respiratory Rate: Normal Appearance: Positive for: Well-Appearing, Non-Toxic, Comfortable Pain Distress: None Mental Status: Positive for: Alert and Oriented X 3 - Systems Exam Head: Present: Atraumatic, Normocephalic Pupils: Present: PERRL Extroacular Muscles: Present: EOMI Conjunctiva: Present: Normal Mouth: Present: Moist Mucous Membranes Neck: Present: Normal Range of Motion Respiratory/Chest: Present: Wheezes (expiratory wheezing bilaterally), Decreased Breath Sounds. No: Rales, Rhonchi Cardiovascular: Present: Regular Rate and Rhythm, Normal S1, S2. No: Murmurs Abdomen: No: Tenderness, Distention, Peritoneal Signs Back: Present: Normal Inspection Upper Extremity: Present: Normal Inspection. No: Cyanosis, Edema Lower Extremity: Present: Normal Inspection. No: Edema Neurological: Present: GCS=15, CN II-XII Intact, Speech Normal Skin: Present: Warm, Dry, Normal Color. No: Rashes Psychiatric: Present: Alert, Oriented x 3, Normal Insight, Normal Concentration Medical Decision Making ED Course and Treatment: 02/12/18 11:29 Impression: 72 year old male with cough and left-side chest pain. Physical exam shows expiratory wheezing bilaterally, diminished breath sounds, no rales, no rhonchi. Differential Diagnoses Include But Are Not Limited To: ACS Asthma exacerbation PNA Plan: -- EKG -- Chest X-ray -- Duoneb -- SOLU-Medrol -- Labs -- Reassess and disposition Prior Visits: Notes and results from previous visits were reviewed. Patient was last seen in the emergency department on 09/25/2017 for intermittent shortness of breath. Patient was discharged home. Progress Notes: 02/12/18 12:43 No leuocytosis noted with slight infiltrate noted on CXR. Patient reassessed with no wheezing on repeat auscultation. He reports needing vials for his nebulizer as well as an albuterol inhaler. The patient demonstrates understanding and will follow up with his PCP. Scripts provided. He is stable for discharge. - Lab Interpretations I have reviewed the lab results: Yes - RAD Interpretation Narrative RAD Interpretations (Text): 02/12/2018 12:46 Chest X-ray IMPRESSION: No active disease. Dictator: Carson Chaidez MD Radiology Orders: 02/12/18 11:12 CHEST PORTABLE [RAD] Stat - Medication Orders Current Medication Orders: Discontinued Medications Albuterol/Ipratropium (Duoneb 3 Mg/0.5 Mg (3 Ml) Ud) 3 ml IH STAT STA Stop: 02/12/18 11:14 Methylprednisolone (Solu-Medrol) 125 mg IVP STAT STA Stop: 02/12/18 11:14 - Scribe Statement The provider has reviewed the documentation as recorded by the Gillian Sands Provider Scribe Attestation: All medical record entries made by the Scribe were at my direction and perso bronson dictated by me. I have reviewed the chart and agree that the record accurately reflects my personal performance of the history, physical exam, medical decision making, and the department course for this patient. I have also personally directed, reviewed, and agree with the discharge instructions and disposition. Disposition/Present on Arrival - Present on Arrival Any Indicators Present on Arrival: No History of DVT/PE: No History of Uncontrolled Diabetes: No Urinary Catheter: No History of Decub. Ulcer: No History Surgical Site Infection Following: None - Disposition Have Diagnosis and Disposition been Completed?: Yes Diagnosis: Asthma attack Disposition: HOME/ ROUTINE Disposition Time: 12:48 Patient Plan: Discharge Condition: STABLE Discharge Instructions (ExitCare): Asthma, Adult (DC) Print Language: MACANESE Prescriptions: Albuterol HFA [Ventolin HFA 90 mcg/actuation (8 g)] 2 puff IH [id number] 2 Days #2 puff Albuterol 0.083% [Albuterol Sulfate 3 Ml] 0.5 ml IH Q6H 2 Days #2 neb Azithromycin 500 mg PO DAILY 5 Days #5 tablet Ipratropium 0.02% [Atrovent] 0.5 mg IH Q6H 2 Days #2 neb Methylprednisolone [Medrol Dose Pack (21 tabs)] 4 mg PO DAILY #21 mg Referrals: Dolly Shepherd MD [Medical Doctor] - [place] up [place] [facility] [place] [facility] [place] - Follow up with primary Forms: [employer] (Lao), WORK NOTE
[2018-02-12] MEDS ORDERED: Albuterol 0.083% Inhal Sol (2.5 mg/3 mL) UD INH STA (11:48)
[2018-02-12 11:49] LABS: ALB/GLOB RATIO 1.2 (1.1-1.8); ALBUMIN 4.2 g/dL (3.0-4.8); ALT/SGPT 32 U/L (7-56); AST/SGOT 27 U/L (17-59); BLOOD UREA NITROGEN 17 mg/dL (7-21); CALCIUM 9.1 mg/dL (8.4-10.5); GFR NON-AFRICAN AMERICAN > 60
[2018-02-12 11:56] LABS: BASO # 0.01 K/mm3 (0.0-2.0); BASO % 0.2 % (0.0-3.0); EOS # 0.5 (0.0-0.7); EOS % 8.1 % (1.5-5.0); GRAN # 3.96 (1.4-6.5); GRAN % 65.6 % (50.0-68.0); HEMOGLOBIN 13.5 g/dL (14.0-18.0); LYMPH # 1.2 (1.2-3.4); LYMPH % 20.1 % (22.0-35.0); MEAN CORPUSCULAR HEMOGLOBIN 30.3 pg (25.0-35.0); MEAN CORPUSCULAR HGB CONC 34.8 g/dl (31.0-37.0); MEAN PLATELET VOLUME 9.5 fl (7.0-11.0); MONO # 0.4 (0.1-0.6); RBC 4.46 10^6/uL (3.5-6.1); RED CELL DISTRIBUTION WIDTH 12.8 % (11.5-14.5)
[2018-02-12 12:00] LABS: TROPONIN I < 0.01 ng/mL
[2018-02-12 12:13] VITALS: BP 125/63; PULSE 60; RESP 20; O2SAT 100
--- NOTE | 2018-02-12 12:50 | RAD ---
Date of service: 02/12/2018 HISTORY: sob COMPARISON: 09/25/2017 FINDINGS: LUNGS: No active pulmonary disease. PLEURA: No significant pleural effusion identified, no pneumothorax apparent. CARDIOVASCULAR: Normal. OSSEOUS STRUCTURES: No significant abnormalities. VISUALIZED UPPER ABDOMEN: Normal. OTHER FINDINGS: None. IMPRESSION: No active disease.
--- NOTE | 2018-02-12 15:16 | CARD ---
APPROVED REPORT Date of service: 02/12/2018 EKG Measurement Heart [id number] [place] [id number] <Conclusion> Normal sinus rhythm Normal ECG
== END 2018-02-12 13:15 | disposition home or self-care (01) ==
LOC: ED 10:55
DX: J45.909 Unspecified asthma, uncomplicated (principal); I10 Essential (primary) hypertension; E78.5 Hyperlipidemia, unspecified; I25.10 Atherosclerotic heart disease of native coronary artery without angina pectoris
CPT/HCPCS: 71045; 80053; 84484; 85025; 93005; 94640; 96374; 99284; J2930

== ENCOUNTER 2018-05-03 23:00 | Emergency (ER) | payer MEDICARE, OTHER ==
[2018-05-03 23:01] VITALS: BMI 34.9
[2018-05-03] MEDS: Lidocaine 5% Patch TD ONE (23:30)
[2018-05-04] MEDS ORDERED: Albuterol-Ipratrop 3 mg / 0.5 (3 ml) UD IH STA (01:00)
[2018-05-04] MEDS ORDERED: Albuterol-Ipratrop 3 mg / 0.5 (3 ml) UD ONE (01:03)
--- NOTE | 2018-05-04 03:00 | ED PDOC ---
Arrival/HPI - General Chief Complaint: Back Pain Time Seen by Provider: 05/03/18 23:24 Historian: Patient - History of Present Illness Narrative History of Present Illness (Text): 05/04/18 03:10 72 year old male, whose past medical history includes herniated disks and asthma, presents to the emergency department with back pain and inability to walk. Patient states his pain worsened today to the point that he was unable to bear his own weight while walking. Patient informs his left leg has sharp shooting pains worse than his right leg. He reports worsening of his asthma lately. Patient states he has been wheezing. Patient denies any fevers, chills, headache, dizziness, chest pain, abdominal pain, nausea, vomiting, diarrhea, neck pain, or any other complaint. Time/Duration: Prior to Arrival Symptom Course: Unchanged Activities at Onset: Rest Context: Walking, Home Past Medical History - Provider Review Nursing Documentation Reviewed: Yes - Travel History Have you recently traveled outside [place] w/in the past 3 mons?: No - Infectious Disease Hx of Infectious Diseases: None - Tetanus Immunization Tetanus Immunization: Unknown - Cardiac Hx Cardiac Disorders: Yes Hx Hypertension: Yes - Pulmonary Hx Respiratory Disorders: Yes Hx Asthma: Yes - Neurological Hx Neurological Disorder: No - HEENT Hx HEENT Disorder: No Hx Blind: No - Renal Hx Renal Disorder: No - Endocrine/Metabolic Hx Endocrine Disorders: No - Hematological/Oncological Hx Blood Disorders: No - Integumentary Hx Dermatological Disorder: No - Musculoskeletal/Rheumatological Hx Musculoskeletal Disorders: No - Gastrointestinal Hx Gastrointestinal Disorders: No - Genitourinary/Gynecological Hx Genitourinary Disorders: No - Psychiatric Hx Psychophysiologic Disorder: No Hx Depression: No Hx Emotional Abuse: No Hx Physical Abuse: No Hx Substance Use: No - Past Surgical History Past Surgical History: No Previous - Surgical History Hx Musculoskeletal Surgery: Yes (right knee) - Anesthesia Hx Anesthesia: Yes Hx Anesthesia Reactions: No Hx Malignant Hyperthermia: No - Suicidal Assessment Feels Threatened In Home Enviroment: No Family/Social History - Physician Review Nursing Documentation Reviewed: Yes Family/Social History: No Known Family HX Smoking Status: Never Smoked Hx Alcohol Use: No Hx Substance Use: No Hx Substance Use Treatment: No Allergies/Home Meds Allergies/Adverse Reactions: Allergies No Known Allergies Allergy (Verified 02/12/18 11:05) Home Medications: Home Meds Medication Instructions Recorded Confirmed Atorvastatin [Lipitor] 40 mg PO HS 09/25/17 02/12/18 Dexlansoprazole [Dexilant] 60 mg pe PO DAILY 09/25/17 02/12/18 Mometasone/Formoterol [Dulera 200 1 puff IH DAILY 09/25/17 02/12/18 Mcg/5 Mcg Inhaler] RX: amLODIPine [Norvasc] 10 mg PO DAILY 09/25/17 02/12/18 Valsartan/Hydrochlorothiazide 1 tab PO DAILY 09/25/17 02/12/18 [Valsartan-Hctz 320-25 mg Tab] Review of Systems - Physician Review All systems were reviewed & negative as marked: Yes - Review of Systems Constitutional: absent: Fevers, Night Sweats Respiratory: SOB, Wheezing Cardiovascular: absent: Chest Pain Gastrointestinal: absent: Abdominal Pain, Diarrhea, Nausea, Vomiting Musculoskeletal: Back Pain. absent: Neck Pain Neurological: absent: Headache, Dizziness Physical Exam Vital Signs Reviewed: Yes Temperature: Afebrile Blood Pressure: Normal Pulse: Regular Respiratory Rate: Normal Appearance: Positive for: Well-Appearing, Non-Toxic, Comfortable Pain Distress: None Mental Status: Positive for: Alert and Oriented X 3 - Systems Exam Head: Present: Atraumatic, Normocephalic Pupils: Present: PERRL Extroacular Muscles: Present: EOMI Conjunctiva: Present: Normal Mouth: Present: Moist Mucous Membranes Neck: Present: Normal Range of Motion Respiratory/Chest: Present: Good Air Exchange, Wheezes (faint expiratory wheezes heard b/l). No: Respiratory Distress, Accessory Muscle Use Cardiovascular: Present: Regular Rate and Rhythm, Normal S1, S2. No: Murmurs Abdomen: No: Tenderness, Distention, Peritoneal Signs Back: Present: Normal Inspection Upper Extremity: Present: Normal Inspection. No: Cyanosis, Edema Lower Extremity: Present: Normal Inspection. No: Edema Neurological: Present: GCS=15, CN II-XII Intact, Speech Normal Skin: Present: Warm, Dry, Normal Color. No: Rashes Psychiatric: Present: Alert, Oriented x 3, Normal Insight, Normal Concentration Medical Decision Making ED Course and Treatment: 05/04/18 03:33 Impression: 72 year old male presents with back pain Plan: --Duonebs -- Valium -- Toradol -- Lidocaine -- Reassess and disposition Prior Visits: Notes and results from previous visits were reviewed. Progress Notes: 05/04/18 Patient reports complete resolution in symptoms stating her is able to ambulate without assistance. Repeat pulmonary exam revels no audible wheezes. Patient advised to follow up with his PCP. He demonstrates understanding. Scripts provided. He is stable for discharge. - Medication Orders Current Medication Orders: Discontinued Medications Diazepam (Valium) 5 mg PO ONCE ONE; Protocol Stop: 05/03/18 23:28 Ketorolac Tromethamine (Toradol) 60 mg IM STAT STA Stop: 05/03/18 23:28 Lidocaine (Lidoderm) 1 ea TD ONCE ONE Stop: 05/03/18 23:28 - Scribe Statement The provider has reviewed the documentation as recorded by the Sudhaibmari Brown Provider Scribe Attestation: All medical record entries made by the Scribe were at my direction and personally dictated by me. I have reviewed the chart and agree that the record accurately reflects my personal performance of the history, physical exam, medical decision making, and the department course for this patient. I have also personally directed, reviewed, and agree with the discharge instructions and disposition. Disposition/Present on Arrival - Present on Arrival Any Indicators Present on Arrival: No History of DVT/PE: No History of Uncontrolled Diabetes: No Urinary Catheter: No History of Decub. Ulcer: No History Surgical Site Infection Following: None - Disposition Have Diagnosis and Disposition been Completed?: Yes Diagnosis: Sciatica, Asthma Disposition: HOME/ ROUTINE Disposition Time: 03:33 Patient Plan: Discharge Condition: IMPROVED Forms: [employer] ([place])
[2018-05-04 03:10] VITALS: BP 137/84; PULSE 67; RESP 18; TEMP 98.5; O2SAT 100
== END 2018-05-04 01:45 | disposition home or self-care (01) ==
LOC: ED 23:00
DX: M54.30 Sciatica, unspecified side (principal); J45.909 Unspecified asthma, uncomplicated; I10 Essential (primary) hypertension
CPT/HCPCS: 96372; 99284; J1885